=== PATIENT | female | born 1970 | race Caucasian/White ===

== ENCOUNTER → 2017-07-27 | Outpatient (CLI) | payer MEDICARE, OTHER ==
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
== END ==
LOC: RADMRIMAIN 14:38
PROVIDERS: ATTEND Neurological Surgery
DX: Z09 Encounter for follow-up examination after completed treatment for conditions other than malignant neoplasm (principal); Z98.1 Arthrodesis status
CPT/HCPCS: 72141

== ENCOUNTER → 2017-08-11 | Outpatient (CLI) | payer OTHER, MEDICARE ==
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
== END | disposition home or self-care (01) ==
LOC: RADCTMAIN 16:51
PROVIDERS: ATTEND Neurological Surgery
DX: M99.71 Connective tissue and disc stenosis of intervertebral foramina of cervical region (principal); M46.92 Unspecified inflammatory spondylopathy, cervical region; Z98.890 Other specified postprocedural states
CPT/HCPCS: 72125

== ENCOUNTER → 2018-04-13 | Outpatient (CLI) | payer OTHER, MEDICARE ==
[2018-04-13 12:14] VITALS: BP 116/73; PULSE 101; RESP 16
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
== END ==
LOC: PNWHC3 11:49
PROVIDERS: ATTEND Specialist
DX: G89.29 Other chronic pain (principal); M50.221 Other cervical disc displacement at C4-C5 level; E11.9 Type 2 diabetes mellitus without complications; I10 Essential (primary) hypertension; F32.9 Major depressive disorder, single episode, unspecified; Z98.890 Other specified postprocedural states; Z87.891 Personal history of nicotine dependence; Z79.899 Other long term (current) drug therapy; Z79.4 Long term (current) use of insulin; Z88.5 Allergy status to narcotic agent; Z88.0 Allergy status to penicillin; Z88.6 Allergy status to analgesic agent
CPT/HCPCS: 99201

== ENCOUNTER 2018-04-28 07:13 | Day surgery (SDC) | payer OTHER, MEDICARE ==
[2018-04-22 10:03] VITALS: BMI 36.9
[~2018-04-28 07:13] MED LIST: SODIUM CHLORIDE 0.9% 500 ML 500 ML IV SCH
[2018-04-28 07:49] VITALS: TEMP 97.7
[2018-04-28 07:50] LABS: Glucose,Whole Blood 232 mg/dL (75-99)
--- NOTE | 2018-04-28 09:12 | P.PCN ---
Date of Procedure: 04/28/18 Preoperative Diagnosis: Cervicogenic headache and cervical spondylosis without myelopathy Postoperative Diagnosis: Same as above Procedure(s) Performed: Cervical bilateral medial branch block for C2, C3 medial branches and the third occipital nerve bilaterally under fluoroscopic guidance Anesthesia: other (Local with lidocaine 1% and IV moderate conscious sedation with 2 mg of Versed) Surgeon: Radha Bolaños Pathology: none sent Condition: stable Disposition: PACU Description of Procedure: The patient was scheduled previously for cervical medial branch block for the levels C4, C5, and C6 however today she states that most of her pain usually is in the upper neck area and in the back of her head in the occipital area and that's why it seems more appropriate at this time to change the levels done to the medial branch block at the C2, C3 and third occipital nerve. The rest of the medial branches The Block at the Current Time to Address Her Lower Neck and Shoulder Pain . The patient was seen and identified in the preoperative area. Risks, benefits, complications, and alternatives were discussed with the patient, the patient agreed to proceed with the procedure and signed the consent. IV was started. Vital signs remained stable throughout the procedure. Patient was taken to the OR and time out was completed. The patient was placed in the supine position on the procedure table. . The cervical area was prepped with chloraprep and draped in the usual sterile fashion. Critical pause was taken. Vital signs were closely monitored during the procedure. Conscious sedation was used during the procedure to decrease patients anxiety. The lateral view of fluoroscopy was used to identify the C2 and C3 trapezoid shaped cervical articular pillars at the target points were the center of the articular pillars . I used 25-gauge 3-1/2 inch Quincke spinal needle to go through the skin after localizing it with lidocaine 1% and to contact the bone at the above-mentioned target point then the AP view of fluoroscopy was used to verify needle position at the waist of the C2 and C3 vertebral bodies laterally. For the 3rd occipital nerve the target point was at the center of the C2-C3 joint and bilaterally . after contacting bone at the target points mentioned above I injected 0.5 MLS of a solution made up off 3 ml of preservative-free Bupivacaine 0.5% mixed with Dexamethasone 10 mg and half ml of the mixture was injected at each level after negative aspiration for blood and CSF. Ider were then removed intact the same procedure was repeated on the left side. COMPLICATIONS: No acute complications. DISPOSITION / PLANS: The patient was placed in a supine position and transferred to the recovery area in a stable condition for observation and was discharged from the recovery room after meeting discharge criteria. Home discharge instructions given to the patient by the staff. The patient was reexamined prior to discharge. The patient will be scheduled for a repeat of this injection in 2-4 weeks.
[2018-04-28 09:24] VITALS: RESP 16
[2018-04-28] MEDS ORDERED: INSULIN ASPART 100 UNIT/ML 1 ML 10 ML VIAL SQ ONE (09:31)
[2018-04-28 09:43] VITALS: BP 137/78; PULSE 92
[2018-04-28 09:46] LABS: Glucose,Whole Blood 215 mg/dL (75-99)
--- NOTE | 2018-04-28 10:26 | FL ---
EXAMINATION TYPE: FL guided pain mgmt statistic DATE OF EXAM: 04/28/2018 COMPARISON: NONE HISTORY: Neck pain TECHNIQUE: Fluoroscopy. FINDINGS/IMPRESSION: Fluoroscopic guidance was provided during procedure performed by Dr. Bolaños. A total of 30 seconds seconds of fluoroscopic time was utilized during the procedure and 4 spot image s was acquired demonstrating localization of the cervical spine.
[2018-04-28] MEDS ORDERED: INSULIN ASPART 100 UNIT/ML 1 ML 10 ML VIAL SQ SCH (12:30)
--- NOTE | 2018-05-02 19:24 | CDI ---
Outpatient Documentation Clarification Form Date: 05/02/18 CDS/Business Initiatives Manager Name: Qing Mercado Phone: If any questions, call Farheen Diaz Bus Operator at [phone] Patient Name: Anat Leonard Admit Date: 04/28/18 Discharge Date: 04/28/18 ATTENTION: The [facility] Coding Staff appreciate your assistance in clarifying documentation. Please respond to the clarification below the line at the bottom and electronically sign. The [facility] Coding staff will review the response and follow-up if needed. Please note: Queries are made part of the Legal Health Record. If you have any questions, please contact the Bus Operator. Dear Dr. Bolaños, It is not clear how many levels were injected; please clarify. Was the C2 injection done at C1-C2 or C2-C3 level? Was the C3 injection done at the C2-C3 or C3-C4 level? Thank you for your kind consideration. MTDD
== END 2018-04-28 09:56 | disposition home or self-care (01) ==
LOC: ORPAIN 07:13
PROVIDERS: ATTEND Anesthesiology
DX: M47.812 Spondylosis without myelopathy or radiculopathy, cervical region (principal); Z88.5 Allergy status to narcotic agent; Z88.0 Allergy status to penicillin
CPT/HCPCS: 64490; 64491; J2250; J1100; 99152; 99153

== ENCOUNTER → 2018-05-17 | Day surgery (SDC) | payer MEDICARE, OTHER ==
[2018-05-12 11:50] VITALS: BMI 36.9
[~2018-05-17] MED LIST changes: +INSULIN ASPART 100 UNIT/ML 1 ML 10 ML VIAL SQ ONE; +SODIUM CHLORIDE 0.9% 500 ML 500 ML IV ONE; -SODIUM CHLORIDE 0.9% 500 ML 500 ML IV SCH
[2018-05-17 06:17] VITALS: RESP 18; TEMP 97.8
[2018-05-17 06:25] LABS: Glucose,Whole Blood 272 mg/dL (75-99)
--- NOTE | 2018-05-17 07:49 | P.PCN ---
Date of Procedure: 05/17/18 Procedure(s) Performed: PREOPERATIVE DIAGNOSIS:1- Cervical Spondylosis with Facet Arthropathy.without myelopathy. 2-cervicogenic headache. 3-occipital neuralgia POSTOPERATIVE DIAGNOSIS: Same as preoperative diagnosis. PROCEDURES: Diagnostic bilateral C2-3 , C3-4, medial branch blocks, with fluoroscopic guidance. Diagnostic bilateral third occipital nerve block under fluoroscopy guidance. ( Total of 3 levels blocked today ) ANESTHESIA: Local with 1% lidocaine; moderate sedation with Versed 2 mg , and fentanyl 50 micrograms EBL: Minimal PROCEDURE INDICATION: The patient with neck pain and headachsecondary to cervical arthropathy unresponsive to more conservative treatments. The exam was positive for severe tenderness over the occipital nerve bilaterally, for this reason she was diagnosed with occipital neuralgia on top of her previous diagnosis PROCEDURE DESCRIPTION / TECHNIQUE: The patient was seen and identified in the preoperative area. Risks, benefits, complications, and alternatives were discussed with the patient, the patient agreed to proceed with the procedure and signed the consent. IV was started. Vital signs remained stable throughout the procedure. Patient was taken to the OR and time out was completed. The patient was placed in the prone position on the procedure table. A pillow was placed under the patients chest to increase the cervical interlaminar space. The cervical area was prepped and draped in the usual sterile fashion. Critical pause was taken. Vital signs were closely monitored during the procedure. Conscious sedation was used during the procedure to decrease patients anxiety. Using cross-table lateral fluoroscopy, the centroid of the trapezoid of right C2 , C3, was identified, marked, and localized with 1% lidocaine 1 ml at each level for skin and Sub Q infiltrations . Subsequently, a 25 G 2 spinal needle was advanced guided by fluoroscopy to the centroid of the trapezoid of Right C2 C3, [place] tip position was confirmed at the centroid of the trapezoids of Right C2 ,C3 with anteroposterior fluoroscopy. Subsequently, 1 ml of preservative-free Ropivacaine 0.5% half ml was injected after negative aspiration for blood and CSF. didn't to do the right side third occipital nerve 25-gauge needle placed in the middle of the facet joint between the C2 and the C3 vertebra, needle placement confirmed with AP and lateral view then after negative aspiration half ML of preservative-free ropivacaine injected , to block the right third occipital nerve, then the [place] was removed intact,and the same procedure was repeated at the left C2-3 ,C3-4, and the left 3rd occipital nerve levels. COMPLICATIONS: No acute complications. DISPOSITION / PLANS: The patient was placed in a supine position and transferred to the recovery area in a stable condition for observation and was discharged from the recovery room after meeting discharge criteria. Home discharge instructions given to the patient by the staff. The patient was reexamined prior to discharge. The patient will schedule a follow up in the clinic in 2-4 weeks.
[2018-05-17 08:18] VITALS: BP 118/76; PULSE 92
[2018-05-17 08:30] LABS: Glucose,Whole Blood 282 mg/dL (75-99)
--- NOTE | 2018-05-18 14:12 | FL ---
Fluoroscopy INDICATION: Pain FINDINGS: Fluoroscopy time: 33 seconds. Images obtained: 0. IMPRESSIONS: 1. Documentation of fluoroscopy.
== END ==
LOC: ORPAIN 05:56
PROVIDERS: ATTEND Specialist
DX: M47.812 Spondylosis without myelopathy or radiculopathy, cervical region (principal); M54.81 Occipital neuralgia; I10 Essential (primary) hypertension; E11.9 Type 2 diabetes mellitus without complications; Z88.5 Allergy status to narcotic agent; Z88.0 Allergy status to penicillin; Z98.51 Tubal ligation status
CPT/HCPCS: 64490; 64491; J2250; J3010; 99152

== ENCOUNTER → 2018-06-10 | Outpatient (CLI) | payer OTHER, MEDICARE ==
[2018-06-10 19:57] LABS: Blood Urea Nitrogen 8 mg/dL (7-17)
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
== END ==
LOC: RADMRIMAIN 19:24
PROVIDERS: ATTEND Preventive Medicine Occupational Medicine
DX: M48.02 Spinal stenosis, cervical region (principal); Z98.1 Arthrodesis status
CPT/HCPCS: 82565; 84520; 72156; A9585

== ENCOUNTER → 2018-09-30 | Outpatient (CLI) | payer MEDICARE, OTHER ==
--- NOTE | 2018-09-30 13:24 | MR ---
EXAMINATION TYPE: MR cervical spine wo con DATE OF EXAM: 09/30/2018 COMPARISON: 07/27/2017 and 08/11/2017 HISTORY: Neck pain. Spondylosis with radiculopathy. Prior cervical fusion. TECHNIQUE: Multiplanar, multisequence images of the cervical spine were acquired. FINDINGS: There is anterior cervical fusion of the C6-C7 vertebral bodies. Cervical spine maintains n ormal vertebral body heights and alignment. Multilevel disc desiccation is seen. Spinal cord signal i s grossly unremarkable. C2-C3: There is a small left-sided osteophyte from uncovertebral hypertrophy creating very minimal le ft neural foraminal narrowing. No right neural foraminal narrowing or spinal canal stenosis. C3-C4: There is a small central disc osteophyte complex without spinal canal stenosis nor significant neural foraminal narrowing. C4-C5: There is very mild uncovertebral hypertrophy and facet arthropathy without significant spinal canal stenosis. There is very minimal right-sided neural foraminal narrowing. Left neural foramen is patent. C5-C6: There is mild uncovertebral hypertrophy and facet arthropathy without significant spinal canal stenosis. There is slight narrowing of the ventral subarachnoid space at this level although a small amount of subarachnoid fluid is seen and spinal canal is within normal limits. No significant spinal canal stenosis. C6-C7: Postsurgical change with small leftward projecting posterior osteophyte remaining minimally im pressing upon the left-sided ventral subarachnoid space with very minimal mass effect upon the spinal cord. No neural foraminal narrowing. C7-T1: No evidence for degenerative disc disease. No disc bulge/herniation or protrusion. No Canal stenosis. Foramina are patent bilaterally. IMPRESSION: 1. Satisfactory alignment and vertebral body height in the cervical spine with postsurgical change at C6-C7. 2. Mild degenerative disc disease of the cervical spine. Very minimal stenosis of the left lateral sp inal canal is seen at C6-C7 from a small leftward projecting posterior osteophyte.
== END | disposition home or self-care (01) ==
LOC: RADMRIMAIN 10:50
PROVIDERS: ATTEND Neurological Surgery
DX: M48.02 Spinal stenosis, cervical region (principal); M50.10 Cervical disc disorder with radiculopathy, unspecified cervical region; M25.78 Osteophyte, vertebrae; Z98.890 Other specified postprocedural states
CPT/HCPCS: 72141

== ENCOUNTER → 2018-10-10 | Outpatient (CLI) | payer OTHER, MEDICARE ==
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
== END | disposition home or self-care (01) ==
LOC: RADCTMAIN 12:22
PROVIDERS: ATTEND Neurological Surgery
DX: M48.02 Spinal stenosis, cervical region (principal); M47.812 Spondylosis without myelopathy or radiculopathy, cervical region; Z98.1 Arthrodesis status
CPT/HCPCS: 72125

== ENCOUNTER → 2019-12-13 | Outpatient (CLI) | payer MEDICARE, OTHER ==
--- NOTE | 2019-12-14 10:39 | ECHOF ---
Referral Reason:R60.9 Edema, unspecified MEASUREMENTS -------- HEIGHT: 175.3 cm WEIGHT: 117.9 kg BP: RVIDd: 3.1 cm (< 3.3) IVSd: 1.6 cm (0.6 - 1.1) LVIDd: 4.5 cm (3.9 - 5.3) LVPWd: 1.4 cm (0.6 - 1.1) IVSs: 1.9 cm LVIDs: 3.2 cm LVPWs: 1.8 cm LAESV Index (A-L): 16.78 ml/m Ao Diam: 2.8 cm (2.0 - 3.7) AV Cusp: 1.8 cm (1.5 - 2.6) MV EXCURSION: 17.701 mm (> 18.000) MV EF SLOPE: 134 mm/s (70 - 150) EPSS: 0.3 cm MV E Mason: 0.85 m/s MV DecT: 216 ms MV A Mason: 0.87 m/s MV E/A Ratio: 0.97 RAP: 5.00 mmHg RVSP: 32.37 mmHg FINDINGS -------- Sinus rhythm. This was a technically difficult study with suboptimal views. There is moderate concentric left ventricular hypertrophy. Overall left ventricular systolic functi on is low-normal with, an EF between 50 - 55 %. The diastolic filling pattern is normal for the age of the patient 10.62. The right ventricle is normal in size. Normal LA size by volume 22+/-6 ml/m2. The right atrium was not well visualized. xx ml of Lumason was utilized for enhancement of images. Interatrial and interventricular septum intact. The aortic valve was not well visualized. There is no evidence of aortic regurgitation. There is no evidence of aortic stenosis. No mitral regurgitation. Mild tricuspid regurgitation present. There is borderline pulmonary hypertension. The right ventr icular systolic pressure, as measured by Doppler, is 32.37mmHg. There is no pulmonic regurgitation present. The aortic root size is normal. IVC Not well visulized. There is no pericardial effusion. CONCLUSIONS -------- 1. Sinus rhythm. 2. This was a technically difficult study with suboptimal views. 3. There is moderate concentric left ventricular hypertrophy. 4. Overall left ventricular systolic function is low-normal with, an EF between 50 - 55 %. 5. The diastolic filling pattern is normal for the age of the patient 10.62 6. The right ventricle is normal in size. 7. Normal LA size by volume 22+/-6 ml/m2. 8. The right atrium was not well visualized. 9. xx ml of Lumason was utilized for enhancement of images. 10. Interatrial and interventricular septum intact. 11. The aortic valve was not well visualized. 12. There is no evidence of aortic regurgitation. 13. There is no evidence of aortic stenosis. 14. No mitral regurgitation. 15. Mild tricuspid regurgitation present. 16. There is borderline pulmonary hypertension. 17. The right ventricular systolic pressure, as measured by Doppler, is 32.37mmHg. 18. There is no pulmonic regurgitation present. 19. The aortic root size is normal. 20. IVC Not well visulized. 21. There is no pericardial effusion. REFORMATORY ATTENDANT: Cecilia Lundberg RDCS
== END | disposition home or self-care (01) ==
LOC: RADECHMAIN 13:54
PROVIDERS: ATTEND Nurse Practitioner Family
DX: I07.1 Rheumatic tricuspid insufficiency (principal)
CPT/HCPCS: C8929; Q9950; 93306

== ENCOUNTER → 2020-05-10 | Outpatient (CLI) | payer MEDICARE, OTHER ==
--- NOTE | 2020-05-10 16:47 | CT ---
EXAMINATION TYPE: CT abdomen wo con DATE OF EXAM: 05/10/2020 COMPARISON: CT abdomen pelvis 06/23/2012 HISTORY: RUQ pain CT DLP: 988.60 mGycm Automated exposure control for dose reduction was used. TECHNIQUE: Helical acquisition of images was performed from the lung bases through the top of iliac crest to include entire abdomen. CONTRAST: Performed without Oral Contrast and without IV contrast. FINDINGS: LUNG BASES: Bibasilar atelectasis. There is a 3 mm pleural-based nodule of the left lower lobe latera lly (4:12) which is unchanged versus 06/23/2012 CT comparison and most likely benign. LIVER/GB: There is a new hypodense lesion of segment 4A of the liver measuring 1.6 x 0.9 x 1.8 cm (3: 25, 6:34), which was not seen on 06/23/2012 CT comparison. Liver is normal in attenuation and size. S tatus post cholecystectomy. No intrahepatic or extrahepatic biliary ductal dilatation. PANCREAS: No peripancreatic inflammation. SPLEEN: Redemonstrated inferior calcified simple splenic cyst, mildly decreased in size versus 2011. ADRENALS: Normal. KIDNEYS: No hydronephrosis or nephrolithiasis. BOWEL: No evidence of obstruction or thickening of the visualized bowel loops. LYMPH NODES: No lymphadenopathy. PERITONEUM: Normal. VASCULATURE: No abdominal aortic aneurysm. OSSEOUS STRUCTURES: Degenerative changes of the spine. IMPRESSION: 1. New indeterminate 1.8 cm hypodense lesion of the liver, not seen on 2011 CT comparison. Recommend follow-up MRI or CT with liver mass protocol for further characterization. 2. Otherwise no acute abdominal process.
== END | disposition home or self-care (01) ==
LOC: RADCTMAIN 13:53
PROVIDERS: ATTEND Family Medicine
DX: R10.11 Right upper quadrant pain (principal)
CPT/HCPCS: 74150

== ENCOUNTER → 2020-10-16 | Outpatient (CLI) | payer MEDICARE, OTHER ==
--- NOTE | 2020-10-17 02:52 | MR ---
EXAMINATION TYPE: MR cervical spine wo con DATE OF EXAM: 10/16/2020 COMPARISON: 09/30/2018 HISTORY: intermodal truck driver neck pain Multiplanar multiecho imaging of the cervical spine was performed without contrast. FINDINGS: Cervical vertebra have normal alignment. There is metal artifact from anterior fusion surgery at C6-7 . Cervical spinal cord has normal signal pattern. There is no edema. There is no evidence of compress ion fracture. Brainstem is intact. I see no evidence of cervical paraspinal mass. There is very small posterior left side disc bulging at C6-7. There is no evidence of spinal stenosis. IMPRESSION: Small left side posterior disc bulge at C6-7 of doubtful significance. No change compared to old exam . No spinal stenosis.
== END | disposition home or self-care (01) ==
LOC: RADMRIMAIN 15:47
PROVIDERS: ATTEND Neurological Surgery
DX: M50.123 Cervical disc disorder at C6-C7 level with radiculopathy (principal)
CPT/HCPCS: 72141

== ENCOUNTER → 2022-09-29 | Outpatient (CLI) | payer MEDICARE, OTHER ==
--- NOTE | 2022-09-29 16:13 | XR ---
EXAMINATION TYPE: XR chest 2V DATE OF EXAM: 09/29/2022 COMPARISON: NONE HISTORY: Shortness of breath TECHNIQUE: Frontal and lateral views of the chest are obtained. FINDINGS: Scattered senescent parenchymal changes noted. Hyperinflation compatible with COPD. No evidence for infiltrate. No evidence for atelectasis. Heart size is stable. Mediastinal structures are stable and grossly unremarkable. No evidence for hilar prominence. Degenerative changes dorsal spine. IMPRESSION: 1. No evidence for acute pulmonary disease.
== END | disposition home or self-care (01) ==
LOC: RADXRYALE 15:46
PROVIDERS: ATTEND Internal Medicine
DX: R91.1 Solitary pulmonary nodule (principal)
CPT/HCPCS: 71046

== ENCOUNTER → 2022-11-17 | Outpatient (CLI) | payer MEDICARE, OTHER ==
--- NOTE | 2022-11-17 18:29 | US ---
EXAMINATION TYPE: US kidneys/renal and bladder DATE OF EXAM: 11/17/2022 COMPARISON: NONE CLINICAL INDICATION: Female, 52 years old with history of R31.9 HEMATURIA; Hematuria EXAM MEASUREMENTS: Right Kidney: 12.3 x 5.1 x 4.5 cm Left Kidney: 12.5 x 5.4 x 4.9 cm Calcified area superior spleen seen on previous and measuring 4.6 x 3.8 x 4.9 cm. Right Kidney: No hydronephrosis or masses seen Left Kidney: No hydronephrosis or masses seen Bladder: Partially distended bladder shows no gross abnormality. Bilateral Jets seen: Yes IMPRESSION: 1. No hydronephrosis. 2. Underdistention of the bladder limits its evaluation. 3. Incidentally redemonstrated 4.9 cm peripherally calcified pseudocyst of the inferior spleen.
== END | disposition home or self-care (01) ==
LOC: RADUSWWP 13:54
PROVIDERS: ATTEND Internal Medicine
DX: N32.89 Other specified disorders of bladder (principal); R31.9 Hematuria, unspecified
CPT/HCPCS: 76770

== ENCOUNTER → 2024-01-25 | Outpatient (CLI) | payer MEDICARE, OTHER ==
--- NOTE | 2024-01-25 14:05 | XR ---
EXAMINATION TYPE: XR foot complete RT DATE OF EXAM: 01/25/2024 CLINICAL HISTORY: pain TECHNIQUE: Frontal, lateral and oblique images of the right foot are obtained. COMPARISON: None. FINDINGS: There is no acute fracture/dislocation evident. The joint spaces appear within normal wright its. The overlying soft tissue appears unremarkable. IMPRESSION: There is no acute fracture or dislocation. ICD 10 NO FRACTURE, INITIAL EVALUATION
== END | disposition home or self-care (01) ==
LOC: RADXRYALE 13:20
PROVIDERS: ATTEND Internal Medicine
DX: M79.671 Pain in right foot (principal); M79.674 Pain in right toe(s)